=== PATIENT | female | born 1980 | race Caucasian/White ===

== ENCOUNTER 2023-11-24 09:59 | Outpatient (AMB) | payer BC, SELFPAY ==
[2023-11-24 11:17] VITALS: BP 100/62; PULSE 70; TEMP 36.7; O2SAT 100; BMI 29.3
--- NOTE | 2023-11-24 11:17 | AM.OFFWIN_ITS ---
Intake Vital Signs 11/24/23 11:17 Height 5 ft 4 in Weight 171 lb BMI 29.3 BP 100/62 Blood Pressure Location Rt brachial Position Sitting Pulse 70 Pulse Source Pulse Oximeter Temp 98.1 F Temp Source Oral Pulse Oximetry (%) 100 Oxygen Delivery Method Room Air Intake Visit Reasons: [employer] pink eye both eyes Intake Note: Pt is here today c/o bilateral eye infection Allergies Penicillins Adverse Reaction (Verified 11/24/23 11:21) rash HPI [employer] pink eye both eyes HPI Details Patient is a 43-year-old female who works as a secondary school registrar, who comes to the walk-in clinic complaining of acute onset of watery and red eyes over the last 2 days. The left eye had worsened this morning with crusting upon wakening, which resolved with wiping but still has watery discharge to the left eye more than the right. She has a few days into upper respiratory infection symptoms, and did not test yet for COVID at home. Review of Systems Const All systems reviewed & are unremarkable except as noted in HPI and below Physical Exam Vital Signs: Last Vital Signs Temp 98.1 F 11/24/23 11:17 Pulse 70 11/24/23 11:17 BP 100/62 11/24/23 11:17 Pulse Ox 100 11/24/23 11:17 Oxygen Delivery Method Room Air 11/24/23 11:17 BMI result Body Mass Index 29.3 Const Other: B/L conjunctival injection, watery discharge Assessment & Plan Assessment & Plan (1) Viral conjunctivitis: Code(s): B30.9 - Viral conjunctivitis, unspecified Plan Pending results for flu COVID and RSV testing, patient declines rapid COVID testing today. I wrote her for a course of antibiotic drops for her eyes Orders: Orders SARS-CoV2/FLU/RSV 11/24/23 R05.9 - Cough, unspecified Medications: New polymyxin B sulf-trimethoprim 10,000 unit- 1 mg/mL while awake; do not exceed 6 doses in 24 hours 1 drp ophthalmic (eye) QID 10 mL 0RF 5 days Coding Level of Care Code New Pt Level 4 (83161) Diagnoses Viral conjunctivitis B30.9
== END 2023-11-24 12:42 | disposition home or self-care (01) ==
PROVIDERS: PCP Nurse Practitioner Family; Visit Provider Physician Assistant Medical
DX: B30.9 Viral conjunctivitis, unspecified (principal)
CPT/HCPCS: 99204

== ENCOUNTER 2023-11-24 12:19 | Outpatient (REF) | payer BC, SELFPAY ==
[2023-11-24 14:56] LABS: Influenza A PCR NEGATIVE (Negative); Influenza B PCR NEGATIVE (Negative); Resp Syncy Virus RNA Qual PCR NEGATIVE (Negative); SARS COV2 PCR INHOUSE NEGATIVE (Negative)
== END 2023-11-24 12:20 | disposition home or self-care (01) ==
LOC: HO.LAB 12:19
PROVIDERS: Visit Provider Physician Assistant Medical
DX: R05.9 Cough, unspecified (principal)
CPT/HCPCS: 0241U